=== PATIENT | male | born 1960 | race Caucasian/White ===

== ENCOUNTER → 2018-09-16 | Outpatient (CLI) | payer BC ==
[2012-10-13 01:40] VITALS: BP 137/87
[~2018-09-16] MED LIST: ALTACE1.25 M1 PO; BACTRIM DS 8001 TAB PO; NEXIUM 20MG CAP20 MG PO; TRILIPIX45 MG PO
[2018-09-16 07:51] LABS: HEMATOCRIT 43.8 % (42.0-52.0); HEMOGLOBIN 14.4 g/dL (13.5-18.0)
[2018-09-16 07:58] LABS: ALBUMIN 4.1 g/dL (3.5-5.0); POTASSIUM 4.3 mmol/L (3.5-5.1)
[2018-09-16 08:00] LABS: CALCIUM 9.3 mg/dL (8.3-10.5)
[2018-09-16 08:01] LABS: TOTAL PROTEIN 7.7 g/dL (6.4-8.3)
[2018-09-16 08:03] LABS: TOTAL BILIRUBIN 0.4 mg/dL (0.2-1.2)
[2018-09-16 16:31] LABS: TESTOSTERONE 329 ng/dL (221-716)
== END ==
LOC: LAB 07:30
PROVIDERS: Urology
DX: E78.5 Hyperlipidemia, unspecified (principal); E29.1 Testicular hypofunction; R73.01 Impaired fasting glucose; E55.9 Vitamin D deficiency, unspecified; Z79.899 Other long term (current) drug therapy

== ENCOUNTER 2018-10-22 23:34 | Emergency (ER) | payer BC ==
[2018-10-22] MEDS ORDERED: MASON NATURAL1000 IU PO (23:43)
[2018-10-22] MEDS ORDERED: LIPITOR 40MG TA40 MG PO (23:43)
[2018-10-22] MEDS ORDERED: TESTOSTERO200 MG/1 M IM (23:43)
[2018-10-23] MEDS ORDERED: NORCO 325 MG-51 TA1 PO (01:34)
[2018-10-23] MEDS ORDERED: AUGMENTIN 875-1 EAC1 PO (01:41)
[2018-10-23 01:50] VITALS: BP 163/84
== END 2018-10-23 01:50 | disposition home or self-care (01) ==
LOC: ED 23:34
DX: K02.9 Dental caries, unspecified (principal); K05.00 Acute gingivitis, plaque induced; Z88.8 Allergy status to other drugs, medicaments and biological substances

== ENCOUNTER 2018-11-20 16:43 | Emergency (ER) | payer BC ==
[~2018-11-20] VITALS: Ht 170.2 cm; Wt 82.7 kg
[~2018-11-20 16:43] MED LIST changes: +AUGMENTIN 875-1 EAC1 PO; +LIPITOR 40MG TA40 MG PO; +MASON NATURAL1000 IU PO; +NORCO 325 MG-51 TA1 PO; +TESTOSTERO200 MG/1 M IM
[2018-11-20 17:42] LABS: BASO # 0.1 (0.02-0.10); EOS # 0.5 (0.04-0.40); HEMATOCRIT 40.4 % (42.0-52.0); HEMOGLOBIN 13.5 g/dL (13.5-18.0); LYMPH# 2.1 (1.50-4.00); MEAN CELL VOLUME 92 fl (78-100); MEAN CORPUSCULAR HEMOGLOBIN 31 pg (27-31); MEAN CORPUSCULAR HGB CONC 33 g/dL (33-37); MEAN PLATELET VOLUME 9.7 fl (7.4-10.4); MONO # 0.6 (0.20-0.80); NEU # 3.6 (1.40-6.50); PLATELET COUNT 136 K/mm3 (130-400); RED BLOOD COUNT 4.38 M/mm3 (4.20-5.60); RED CELL DISTRIBUTION WIDTH 13.3 % (11.5-14.5); WHITE BLOOD COUNT 6.9 K/mm3 (4.8-10.8)
[2018-11-20 17:44] LABS: EOS % 6.5 % (0.0-4.0)
[2018-11-20 17:58] LABS: POTASSIUM 3.9 mmol/L (3.5-5.1)
[2018-11-20 18:00] LABS: TOTAL PROTEIN 6.8 g/dL (6.4-8.3)
[2018-11-20 18:02] LABS: TOTAL BILIRUBIN 0.3 mg/dL (0.2-1.2)
[2018-11-20 22:54] VITALS: BP 143/80
== END 2018-11-20 22:54 | disposition home or self-care (01) ==
LOC: ED 16:43
PROVIDERS: Family Medicine
DX: R00.0 Tachycardia, unspecified (principal); R07.89 Other chest pain; I10 Essential (primary) hypertension; E78.5 Hyperlipidemia, unspecified; F17.210 Nicotine dependence, cigarettes, uncomplicated

== ENCOUNTER 2023-03-18 17:30 | Emergency (ER) | payer BC ==
[~2023-03-18] VITALS: Ht 167.6 cm; Wt 90.9 kg
[~2023-03-18 17:30] MED LIST changes: -ALTACE1.25 M1 PO; +ALTACE1.25 MG PO
[2023-03-18 19:26] VITALS: BP 182/92
== END 2023-03-18 19:26 | disposition home or self-care (01) ==
LOC: ED 17:30
DX: S61.012A Laceration without foreign body of left thumb without damage to nail, initial encounter (principal); W26.0XXA Contact with knife, initial encounter
CPT/HCPCS: 90714

== ENCOUNTER → 2023-07-27 | Day surgery (SDC) | payer BC ==
[~2023-07-27] MED LIST changes: +LOPRESSOR 225 MG/TAB PO
== END | disposition home or self-care (01) ==
LOC: MSO 07:36
DX: Z12.11 Encounter for screening for malignant neoplasm of colon (principal)
CPT/HCPCS: 00812; J2704; J7120